=== PATIENT | female | born 1990 | race Caucasian/White ===

== ENCOUNTER → 2019-02-11 10:52 | Outpatient (BNVA) | payer MEDICAID, SELFPAY | PROVIDERS: Family Provider Family Medicine; PCP Family Medicine; Visit Provider Internal Medicine Rheumatology | DX: L40.50 Arthropathic psoriasis, unspecified (principal); L40.8 Other psoriasis; Z79.899 Other long term (current) drug therapy; M43.06 Spondylolysis, lumbar region; M62.830 Muscle spasm of back | CPT/HCPCS: 36415; 80053; 85025; 99214 ==

== ENCOUNTER → 2019-05-07 13:30 | Outpatient (BNVA) | payer MEDICAID, SELFPAY | PROVIDERS: Family Provider Family Medicine; PCP Family Medicine; Visit Provider Internal Medicine Rheumatology | DX: L40.50 Arthropathic psoriasis, unspecified (principal); Z79.899 Other long term (current) drug therapy; Z11.59 Encounter for screening for other viral diseases; Z11.1 Encounter for screening for respiratory tuberculosis; Z72.89 Other problems related to lifestyle | CPT/HCPCS: 36415; 80076; 82565; 85651; 86140; 86480; 86704; 86803; 87340 ==

== ENCOUNTER → 2019-05-07 14:13 | Outpatient (BNVA) | payer MEDICAID, SELFPAY | PROVIDERS: Family Provider Family Medicine; PCP Family Medicine; Visit Provider Internal Medicine Rheumatology | DX: L40.50 Arthropathic psoriasis, unspecified (principal); Z79.899 Other long term (current) drug therapy | CPT/HCPCS: 85025 ==

== ENCOUNTER → 2019-07-22 08:49 | Outpatient (BNVA) | payer MEDICAID, SELFPAY | PROVIDERS: Family Provider Family Medicine; PCP Family Medicine; Visit Provider Psychiatry & Neurology Psychiatry | DX: F39 Unspecified mood [affective] disorder (principal); F31.9 Bipolar disorder, unspecified; F43.10 Post-traumatic stress disorder, unspecified; F10.239 Alcohol dependence with withdrawal, unspecified; F10.24 Alcohol dependence with alcohol-induced mood disorder | CPT/HCPCS: 99205 ==

== ENCOUNTER 2019-07-22 11:26 | Outpatient (CLI) | payer MEDICAID, SELFPAY ==
[2019-07-22 12:37] LABS: Chol HDL Ratio 3.85 mg/dL (0.0-4.40); Cholesterol 177 mg/dL (0-200); Free T4 Free Thyroxine 1.32 ng/dL (0.82-1.77); HDL Cholesterol 46 mg/dL (60-100); LDL Cholesterol Calculated 112 mg/dL (50-129); LDL HDL Ratio 2.43 RATIO (0.00-3.22); Magnesium 2.3 mg/dL (1.7-2.3); T3 Free 3.6 PG/ML (2.0-4.4); Thyroid Stimulating Hormone 1.21 uIU/mL (0.27-4.20); Triglycerides 94 mg/dL (0-150)
[2019-07-22 12:48] LABS: 25 Hydroxy Vitamin D 53 ng/mL (30-100); Vitamin B12 606 pg/mL (232-1245)
[2019-07-22 13:04] LABS: Folate Level 12.3 ng/mL (4.8-37.3)
[2019-07-23 08:36] LABS: T3 Total 107 ng/dL (76-181)
[2019-07-29 06:52] LABS: Amphetamine negative; Barbiturates negative; Benzodiazepines negative; Cocaine Metabolites negative; Marijuana(Tetrahydrocannabino) negative; Opiates negative; PCP (Phencyclidine) negative
[2019-07-29 06:53] LABS: Copper Level 135 mcg/dL (70-175); Zinc Level, Serum or Plasma 85 mcg/dL (60-130)
== END 2019-07-22 11:27 | disposition home or self-care (01) ==
LOC: LAB 11:31
PROVIDERS: PCP Family Medicine; Visit Provider Psychiatry & Neurology Psychiatry
DX: F39 Unspecified mood [affective] disorder (principal); F31.9 Bipolar disorder, unspecified
CPT/HCPCS: 80061; 80307; 82306; 82525; 82607; 82746; 83735; 84439; 84443; 84480; 84481; 84630

== ENCOUNTER → 2019-09-04 08:15 | Outpatient (BNVA) | payer MEDICAID, SELFPAY | PROVIDERS: PCP Family Medicine; Visit Provider Counselor Professional | DX: F43.10 Post-traumatic stress disorder, unspecified (principal); F10.239 Alcohol dependence with withdrawal, unspecified; F10.24 Alcohol dependence with alcohol-induced mood disorder | CPT/HCPCS: 90834 ==

== ENCOUNTER → 2019-09-11 07:56 | Outpatient (BNVA) | payer MEDICAID, SELFPAY | PROVIDERS: PCP Family Medicine; Visit Provider Counselor Professional | DX: F43.12 Post-traumatic stress disorder, chronic (principal) | CPT/HCPCS: 90834 ==

== ENCOUNTER → 2019-09-18 07:35 | Outpatient (BNVA) | payer MEDICAID, SELFPAY | PROVIDERS: PCP Family Medicine; Visit Provider Counselor Professional | DX: F43.12 Post-traumatic stress disorder, chronic (principal) | CPT/HCPCS: 90834 ==

== ENCOUNTER → 2019-10-01 08:37 | Outpatient (BNVA) | payer MEDICAID, SELFPAY | PROVIDERS: PCP Family Medicine; Visit Provider Counselor Professional | DX: F43.12 Post-traumatic stress disorder, chronic (principal) | CPT/HCPCS: 90834 ==

== ENCOUNTER → 2019-10-07 09:13 | Outpatient (BNVA) | payer MEDICAID, SELFPAY | PROVIDERS: PCP Family Medicine; Visit Provider Nurse Practitioner Psychiatric/Mental Health | DX: F43.10 Post-traumatic stress disorder, unspecified (principal); F39 Unspecified mood [affective] disorder | CPT/HCPCS: 99213 ==

== ENCOUNTER → 2019-10-08 10:36 | Outpatient (BNVA) | payer MEDICAID, SELFPAY | PROVIDERS: PCP Family Medicine; Visit Provider Nurse Practitioner Psychiatric/Mental Health | DX: Z03.89 Encounter for observation for other suspected diseases and conditions ruled out (principal) | CPT/HCPCS: 80053 ==

== ENCOUNTER → 2019-10-15 09:47 | Outpatient (BNVA) | payer MEDICAID, SELFPAY | PROVIDERS: PCP Family Medicine; Visit Provider Counselor Professional | DX: F43.12 Post-traumatic stress disorder, chronic (principal); F10.10 Alcohol abuse, uncomplicated | CPT/HCPCS: 90834 ==

== ENCOUNTER → 2019-10-21 11:01 | Outpatient (BNVA) | payer MEDICAID, SELFPAY | PROVIDERS: PCP Family Medicine; Visit Provider Nurse Practitioner Family | DX: N63.0 Unspecified lump in unspecified breast (principal); Z78.9 Other specified health status; Z01.419 Encounter for gynecological examination (general) (routine) without abnormal findings | CPT/HCPCS: 88175 ==

== ENCOUNTER 2019-11-13 12:29 | Outpatient (CLI) | payer MEDICAID, SELFPAY ==
--- NOTE | 2019-11-13 12:30 | MM_ITS ---
WS: [id number] BILATERAL DIGITAL DIAGNOSTIC MAMMOGRAM MAMMOGRAPHY WITH CAD CLINICAL INFORMATION: breast nodule left COMPARISON: None. TECHNIQUE: Bilateral CC, MLO, and ML views. FINDINGS: Scattered fibroglandular densities bilaterally. Palpable marker upper outer quadrant left breast. Und erlying fibroglandular tissue. No definite mammographic abnormality. Ultrasound is pending. Unremarkable right breast. ULTRASOUND BREAST LEFT TECHNIQUE: Ultrasound left breast focused area of concern. CLINICAL INFORMATION: breast nodule left. Left breast discharge. COMPARISON: None. FINDINGS: Ultrasound left breast at the 1 to 3:00 position. Dense parenchymal tissue. Small hypoechoic focus at the 2:00 position 2 cm from the nipple. Small hypoechoic lesion measures approximately 2.9 x 2.6 x 3 .4 mm. This is nonspecific but probably benign and recommend 6 month follow-up ultrasound to confirm stability. MM/[place] [id number] IMPRESSION: BI-RADS: 3-Probably Benign FOLLOW UP: 6 Month Follow-up RECOMMEND 6 MONTH FOLLOW-UP LEFT BREAST ULTRASOUND TO CONFIRM STABILITY OF THE SMALL NODULE
--- NOTE | 2019-11-13 13:30 | US_ITS ---
WS: [id number] BILATERAL DIGITAL DIAGNOSTIC MAMMOGRAM MAMMOGRAPHY WITH CAD CLINICAL INFORMATION: breast nodule left COMPARISON: None. TECHNIQUE: Bilateral CC, MLO, and ML views. FINDINGS: Scattered fibroglandular densities bilaterally. Palpable marker upper outer quadrant left breast. Und erlying fibroglandular tissue. No definite mammographic abnormality. Ultrasound is pending. Unremarkable right breast. ULTRASOUND BREAST LEFT TECHNIQUE: Ultrasound left breast focused area of concern. CLINICAL INFORMATION: breast nodule left. Left breast discharge. COMPARISON: None. FINDINGS: Ultrasound left breast at the 1 to 3:00 position. Dense parenchymal tissue. Small hypoechoic focus at the 2:00 position 2 cm from the nipple. Small hypoechoic lesion measures approximately 2.9 x 2.6 x 3 .4 mm. This is nonspecific but probably benign and recommend 6 month follow-up ultrasound to confirm stability. US/US breast LT limited* [id number] IMPRESSION: BI-RADS: 3-Probably Benign FOLLOW UP: 6 Month Follow-up RECOMMEND 6 MONTH FOLLOW-UP LEFT BREAST ULTRASOUND TO CONFIRM STABILITY OF THE SMALL NODULE
== END 2019-11-13 12:30 | disposition home or self-care (01) ==
PROVIDERS: PCP Nurse Practitioner Family; Visit Provider Nurse Practitioner Family
DX: N63.21 Unspecified lump in the left breast, upper outer quadrant (principal); N64.52 Nipple discharge
CPT/HCPCS: 76642; 77066

== ENCOUNTER → 2020-01-06 09:52 | Outpatient (BNVA) | payer MEDICAID, SELFPAY | PROVIDERS: PCP Nurse Practitioner Family; Visit Provider Internal Medicine | DX: Z79.899 Other long term (current) drug therapy (principal) | CPT/HCPCS: 36415; 80076; 82565; 85025; 85651; 86140 ==

== ENCOUNTER → 2020-01-14 10:38 | Outpatient (BNVA) | payer MEDICAID, SELFPAY | PROVIDERS: PCP Family Medicine; Visit Provider Internal Medicine Rheumatology | DX: L40.50 Arthropathic psoriasis, unspecified (principal); L40.9 Psoriasis, unspecified; Z79.899 Other long term (current) drug therapy; M47.896 Other spondylosis, lumbar region; F17.210 Nicotine dependence, cigarettes, uncomplicated | CPT/HCPCS: 99214 ==

== ENCOUNTER 2020-03-19 10:30 | Emergency (ER) | payer MEDICAID, SELFPAY ==
--- NOTE | 2020-03-19 10:44 | XR_ITS ---
WS: [id number] Right wrist, 3 views, 03/19/2020 Clinical Data: injury Comparison: None. Findings: No fractures or dislocations are seen. The carpal bones are intact. There is no soft tissue swelling. The distal radius and ulna are not remarkable. XR/XR wrist RT min 3V* [id number] Impression: Negative right wrist.
[2020-03-19 10:45] VITALS: BP 120/78; PULSE 53; RESP 16; TEMP 37; O2SAT 100; BMI 26.4
--- NOTE | 2020-03-19 10:57 | W.ED.EXTPRO ---
HPI - Extremity Problem General: Chief complaint: Extremity Problem,Nontraumatic Stated complaint: R WRIST PAIN/INJURY Time Seen by Provider: 03/19/20 10:49 History of Present Illness: HPI Narrative: Patient complains of right wrist pain for the last week or 2. Radiates up her arm. Denies any injury. Has seen folder tier in the past had a cyst taken off the left wrist she feels maybe a cyst is happening now. MD Complaint: extremity pain Onset (ago): week(s) Pain Consistency: constant Location: right and upper extremity Severity scale (1-10): 4 Quality: stabbing and aching Radiation: proximal Relieving factors: immobilization Exacerbating factors: range of motion Associated symptoms: Reports no associated symptoms; Deny chest pain, fever(s) or rash Context: other (Patient has started a new videogame which is a drum beating game last couple weeks and pain has started after that) Review of Systems Const: Denies: fever(s), chills or body aches Eyes: Denies: change in vision or blurry vision ENMT: Denies: throat pain or nasal congestion Card: Denies: chest pain or dyspnea on exertion Resp: Denies: dyspnea, productive cough or non-productive cough GI: Denies: abdominal pain, nausea or vomiting Musc: Reports: joint pain (Right wrist) and other (Has numbness in thumb fingers #2 and 3 also has started new video game); Denies: extremity pain Skin/Breast: Denies: rash Neuro: Denies: headache(s) Psych: Denies: anxiety or depression Raoul/Lymph: Denies: easy bruising PFSH ED PFSH: Medical History (Updated 01/14/20 @ 11:26 by Ap Ramires MD) Degenerative disc disease, lumbar High risk medication use Immunization counseling Psoriasis Psoriatic arthritis Scalp psoriasis Surgical History H/O knee surgery two surgeries on right knee and one on the left knee,scope only History of appendectomy History of tubal ligation Family History Other Cancer Diabetes Hypertension Stroke Denies family history of Rheumatoid arthritis Hyperlipidemia Systemic lupus erythematosus (SLE) in adult Lung disease Social History (Reviewed 12/09/20 @ 10:54 by NORA Yeung Smoking and tobacco status: current every day smoker cigarettes Packs smoked per day: 1 Years cigarettes smoked: 10 [ Other cigarette details: off and on ] Quit status (tobacco): considering quitting Alcohol intake: never Marital status: History of recent travel: No (last ask 02/11/2018) Current gender identity: Female Physical Exam Const: COMMON NORMALS: no acute distress Resp: COMMON NORMALS: normal respiratory effort Extremity: RIGHT UPPER EXTREMITY: Yes wrist (Pain with range of motion no swelling no deformity no abnormalities noted.) and Yes hand & digits (Fingers 1 2 and 3 was some numbness) OTHER: Tinel's and Phalen's positive right wrist Psych: COMMON NORMALS: mental status grossly normal Course Vital Signs: Vital signs: Vital Signs Temperature 98.6 F 03/19/20 10:45 Pulse Rate 53 L 03/19/20 10:45 Respiratory Rate 16 03/19/20 10:45 Blood Pressure 120/78 03/19/20 10:45 Pulse Oximetry 100 03/19/20 10:45 Discharge Plan Discharge Prescriptions: No Action ibuprofen 800 mg tablet 800 mg PO TID Qty: 90 RF: 2 escitalopram oxalate 10 mg tablet 10 mg PO DAILY Qty: 30 RF: 0 prednisone 10 mg tablet See Rx Instructions PO .COMPLEX PRN (Reason: joint pain) Qty: 30 RF: 1 leflunomide 20 mg tablet 20 mg PO DAILY Qty: 30 RF: 3 Enbrel SureClick 50 mg/mL (1 mL) pen injector 50 mg SUBCUT .once weekly Qty: 4 RF: 3 Coding Level of Care Code ED [employer] for [facility] Marcel
== END 2020-03-19 11:49 | disposition home or self-care (01) ==
PROVIDERS: Emergency Provider Nurse Practitioner Family
DX: M25.531 Pain in right wrist (principal); F17.210 Nicotine dependence, cigarettes, uncomplicated
CPT/HCPCS: 73110; 99282

== ENCOUNTER 2020-05-21 10:12 | Outpatient (CLI) | payer MEDICAID, SELFPAY ==
--- NOTE | 2020-05-21 10:15 | US_ITS ---
WS: [id number] Left breast ultrasound, 05/21/2020 Clinical Data: breast nodule Comparison: Left breast ultrasound, 11/13/2019. Findings: At the 1 to 2:00 position 2 cm from the left nipple there is a small nodule or cyst measuring 0.29 x 0.23 x 0.33 cm. The wall is well defined. This nodule has not changed. US/US breast LT limited* [id number] Impression: 1. No change in probably benign nodule left breast. 2. Recommend return to annual screening mammograms. BIRADS: 2-Benign FOLLOW UP: See Report
== END 2020-05-21 10:13 | disposition home or self-care (01) ==
LOC: RAD 10:15
PROVIDERS: Visit Provider Nurse Practitioner Family
DX: N63.21 Unspecified lump in the left breast, upper outer quadrant (principal)
CPT/HCPCS: 76642

== ENCOUNTER → 2020-05-25 12:56 | Outpatient (BNVA) | payer MEDICAID, SELFPAY | PROVIDERS: Visit Provider Internal Medicine Rheumatology | DX: L40.50 Arthropathic psoriasis, unspecified (principal); L40.9 Psoriasis, unspecified; Z79.899 Other long term (current) drug therapy | CPT/HCPCS: 36415; 80076; 82565; 85025; 86140 ==

== ENCOUNTER → 2020-06-01 12:40 | Outpatient (BNVA) | payer MEDICAID, SELFPAY | PROVIDERS: PCP Nurse Practitioner Family; Referring Provider Nurse Practitioner Family; Visit Provider Internal Medicine Rheumatology | DX: L40.50 Arthropathic psoriasis, unspecified (principal); L40.9 Psoriasis, unspecified; M47.26 Other spondylosis with radiculopathy, lumbar region; Z79.899 Other long term (current) drug therapy | CPT/HCPCS: 99214 ==

== ENCOUNTER 2020-08-23 15:40 | Outpatient (CLI) | payer MEDICAID, SELFPAY ==
[2020-08-23 16:07] LABS: Basophils % 0.7 %; Eosinophils # 0.1 10^3/uL (0.0-0.8); Eosinophils % 2.5 %; Hematocrit 42.3 % (37.0-47.0); Hemoglobin 13.9 g/dL (11.5-15.3); Lymphocytes # 2.4 10^3/uL (0.8-4.8); Lymphocytes % 42.6 %; Mean Corpuscular HGB Conc 32.9 g/dL (30.0-36.0); Mean Corpuscular Volume 91.2 fL (81-99); Mean Platelet Volume 9.3 fL (7.4-10.4); Monocytes # 0.5 10^3/uL (0.2-0.9); Monocytes % 8.7 %; Neutrophils # 2.54 10^3/uL (1.8-7.7); Neutrophils % 45.1 %; Nucleated Red Blood Cells % 0 %; Platelet Count 270 10^3/cmm (130-400); Red Blood Count 4.64 10^6/uL (4.1-5.3); Red Cell Distribution Width 12.2 % (12.1-15.1); White Blood Count 5.6 10^3/uL (4.0-10.0)
[2020-08-23 16:19] LABS: Alanine Aminotransferase 8 U/L (0-33); Albumin Level 4.6 g/dL (3.5-5.2); Alkaline Phosphatase 56 IU/L (35-105); Aspartate Amino Transferase 14 U/L (0-32); C Reactive Protein 0.8 mg/L (0.0-4.9); Glomerular Filtration Rate 144.9 mL/min (90-130); Total Protein 7.6 g/dL (6.6-8.7)
== END 2020-08-23 15:41 | disposition home or self-care (01) ==
PROVIDERS: PCP Nurse Practitioner Family; Visit Provider Internal Medicine Rheumatology
DX: L40.50 Arthropathic psoriasis, unspecified (principal); M19.90 Unspecified osteoarthritis, unspecified site; Z79.899 Other long term (current) drug therapy
CPT/HCPCS: 36415; 80076; 82565; 85025; 86140

== ENCOUNTER → 2020-10-06 10:43 | Outpatient (BNVA) | payer MEDICAID, SELFPAY | PROVIDERS: PCP Nurse Practitioner Family; Visit Provider Counselor Professional | DX: F43.12 Post-traumatic stress disorder, chronic (principal); F39 Unspecified mood [affective] disorder | CPT/HCPCS: 90834 ==

== ENCOUNTER → 2020-10-13 12:02 | Outpatient (BNVA) | payer MEDICAID, SELFPAY | PROVIDERS: PCP Nurse Practitioner Family; Visit Provider Counselor Professional | DX: F43.12 Post-traumatic stress disorder, chronic (principal) | CPT/HCPCS: 90834 ==

== ENCOUNTER → 2020-10-20 13:53 | Outpatient (BNVA) | payer MEDICAID, SELFPAY | PROVIDERS: PCP Nurse Practitioner Family; Visit Provider Counselor Professional | DX: F43.12 Post-traumatic stress disorder, chronic (principal) | CPT/HCPCS: 90834 ==

== ENCOUNTER → 2020-10-27 14:48 | Outpatient (BNVA) | payer MEDICAID, SELFPAY | PROVIDERS: PCP Nurse Practitioner Family; Visit Provider Counselor Professional | DX: F43.12 Post-traumatic stress disorder, chronic (principal) | CPT/HCPCS: 90834 ==

== ENCOUNTER → 2020-11-03 11:35 | Outpatient (BNVA) | payer MEDICAID, SELFPAY | PROVIDERS: PCP Nurse Practitioner Family; Visit Provider Counselor Professional | DX: F43.12 Post-traumatic stress disorder, chronic (principal) | CPT/HCPCS: 90834 ==

== ENCOUNTER → 2021-04-07 15:32 | Outpatient (BNVA) | payer MEDICAID, SELFPAY | PROVIDERS: PCP Nurse Practitioner Family; Visit Provider Nurse Practitioner Family | DX: R30.0 Dysuria (principal); R32 Unspecified urinary incontinence; N89.8 Other specified noninflammatory disorders of vagina; R35.0 Frequency of micturition | CPT/HCPCS: 81003; 87070; 87205; 87491; 87591; 87661 ==

== ENCOUNTER → 2021-06-02 13:11 | Outpatient (BNVA) | payer MEDICAID, SELFPAY | PROVIDERS: PCP Nurse Practitioner Family; Visit Provider Internal Medicine Rheumatology | DX: L40.50 Arthropathic psoriasis, unspecified (principal); L40.9 Psoriasis, unspecified; Z79.899 Other long term (current) drug therapy; Z71.89 Other specified counseling | CPT/HCPCS: 36415; 80076; 82565; 85025; 86140; 99214 ==

== ENCOUNTER → 2021-10-31 10:45 | Outpatient (BNVA) | payer MEDICAID, SELFPAY | PROVIDERS: Visit Provider Internal Medicine Rheumatology | DX: L40.50 Arthropathic psoriasis, unspecified (principal); L40.9 Psoriasis, unspecified; Z79.899 Other long term (current) drug therapy; Z71.89 Other specified counseling; M47.26 Other spondylosis with radiculopathy, lumbar region | CPT/HCPCS: 80076; 82565; 85025; 86140; 99214 ==

== ENCOUNTER → 2022-01-17 10:13 | Outpatient (BNVA) | payer BC, MEDICAID, SELFPAY | PROVIDERS: Visit Provider Internal Medicine Rheumatology | DX: L40.50 Arthropathic psoriasis, unspecified (principal); Z79.899 Other long term (current) drug therapy; L40.9 Psoriasis, unspecified; Z71.89 Other specified counseling; M47.26 Other spondylosis with radiculopathy, lumbar region | CPT/HCPCS: 73130; 80076; 82565; 85025; 86140; 99214 ==

== ENCOUNTER → 2023-09-12 15:31 | Outpatient (BNVA) | payer BC, MEDICAID, SELFPAY | PROVIDERS: Visit Provider Nurse Practitioner Family | DX: A64 Unspecified sexually transmitted disease (principal); R30.0 Dysuria | CPT/HCPCS: 87491; 87591; 87661 ==

== ENCOUNTER → 2024-01-04 13:03 | Outpatient (BNVA) | payer BC, SELFPAY | PROVIDERS: Visit Provider Nurse Practitioner | DX: J02.9 Acute pharyngitis, unspecified (principal) | CPT/HCPCS: 87426; 87880 ==

== ENCOUNTER → 2024-05-13 09:31 | Outpatient (BNVA) | payer BC, SELFPAY | PROVIDERS: PCP Nurse Practitioner; Visit Provider Nurse Practitioner | DX: L40.50 Arthropathic psoriasis, unspecified (principal) | CPT/HCPCS: 80053; 80061; 85025; 85651; 86140 ==

== ENCOUNTER → 2024-05-28 11:30 | Outpatient (BNVA) | payer BC, SELFPAY | PROVIDERS: PCP Nurse Practitioner; Visit Provider Nurse Practitioner | DX: Z01.419 Encounter for gynecological examination (general) (routine) without abnormal findings (principal); Z12.4 Encounter for screening for malignant neoplasm of cervix | CPT/HCPCS: 88175 ==

== ENCOUNTER → 2024-07-09 10:13 | Outpatient (BNVA) | payer BC, SELFPAY | PROVIDERS: PCP Nurse Practitioner; Referring Provider Nurse Practitioner; Visit Provider Internal Medicine Rheumatology | DX: M47.896 Other spondylosis, lumbar region (principal); M51.360 Other intervertebral disc degeneration, lumbar region with discogenic back pain only; M79.642 Pain in left hand | CPT/HCPCS: 72100; 73130 ==